=== PATIENT | male | born 1940 | race Caucasian/White ===

== ENCOUNTER 2022-07-16 09:10 | Outpatient (CLI) | payer MEDICARE, OTHER | END 2022-07-16 09:11 | disposition home or self-care (01) | LOC: SCSCT 09:10 | PROVIDERS: ATTEND Psychiatry & Neurology Neurology | DX: G91.2 (Idiopathic) normal pressure hydrocephalus (principal); G31.9 Degenerative disease of nervous system, unspecified | CPT/HCPCS: 70450 ==